=== PATIENT | female | born 1945 | race Caucasian/White ===

== ENCOUNTER 2018-07-20 13:13 | Emergency (ER) | payer MEDICARE ==
--- NOTE | 2018-07-20 14:17 | RAD ---
FOUR VIEWS LEFT RADIUS: History: Fall. Pain. Injury. FINDINGS: There is degenerative change of the first carpal metacarpal joint space. Distal radius fracture with dorsal angulation. No intraarticular extension. Distal ulna is unremarkable. With regard to the carpal bones, an obvious fracture is not appreciated. There appears to be well cor ticated ossific density near the trapezium bone, likely due to a chronic injury. IMPRESSION: Distal radius fracture. POS: [facility]ISES
--- NOTE | 2018-07-20 15:44 | RAD ---
LEFT WRIST TWO VIEWS: HISTORY: A 73-year-old female with a history of post reduction for a distal radial fracture. FINDINGS: Splint material overlies the wrist. There is some persistent dorsal angulation, although there is sl ight improvement in the amount of angulation when compared to the pre-splint study. There is conside rable foreshortening, but also slightly improved. Degenerative changes of the trapezium/first metaca rpal joint, as well as a small, irregular bony density in the soft tissues on the radial side of the trapezium. IMPRESSION: Minimal improvement in position and alignment of the distal radial comminuted fracture with some pers istent foreshortening and dorsal angulation. POS: [facility]ISES
== END 2018-07-20 16:05 | disposition home or self-care (01) ==
LOC: MADERS 13:13
DX: S52.502A Unspecified fracture of the lower end of left radius, initial encounter for closed fracture (principal); I10 Essential (primary) hypertension; Z79.82 Long term (current) use of aspirin; Z79.899 Other long term (current) drug therapy; W19.XXXA Unspecified fall, initial encounter
CPT/HCPCS: 25605